=== PATIENT | male | born 1995 | race Caucasian/White ===

== ENCOUNTER 2017-04-19 13:07 | Emergency (ER) | payer MEDICAID, OTHER ==
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
== END 2017-04-19 15:00 | disposition home or self-care (01) ==
LOC: UCCORT 13:07
DX: Z76.0 Encounter for issue of repeat prescription (principal); Z79.82 Long term (current) use of aspirin; Z98.890 Other specified postprocedural states
CPT/HCPCS: 99202; G0463

== ENCOUNTER 2018-08-08 23:36 | Emergency (ER) | payer MEDICAID, OTHER ==
[2018-08-08] MEDS ORDERED: Ibuprofen TAB* 600 MG PO ONE (23:46)
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
[2018-08-09 00:40] VITALS: BP 135/73
== END 2018-08-09 01:15 | disposition home or self-care (01) ==
LOC: ED 23:36
DX: S05.12XA Contusion of eyeball and orbital tissues, left eye, initial encounter (principal); R60.0 Localized edema; M25.561 Pain in right knee; Y04.2XXA Assault by strike against or bumped into by another person, initial encounter; Y92.9 Unspecified place or not applicable
CPT/HCPCS: 99282; A9270-GY